=== PATIENT | male | born 1970 | race Caucasian/White ===

== ENCOUNTER 2022-10-05 09:19 | Outpatient (CLI) | payer OTHER, SELFPAY ==
[2022-10-05 15:32] LABS: Chloride* 101 mmol/L (96-114)
[2022-10-05 15:33] LABS: Potassium* 4.2 mmol/L (3.6-5.1); Sodium* 139 mmol/L (135-149)
[2022-10-05 15:36] LABS: Blood Urea Nitrogen* 19 mg/dL (5-24); Carbon Dioxide* 30 mmol/L (20-32); Cholesterol* 231 mg/dL (90-199); Creatinine* 1.1 mg/dL (0.5-1.5); Estimated Glomerular Filt Rate 82 ml/min
[2022-10-05 15:37] LABS: Calcium* 9.5 mg/dL (8.4-10.6); Glucose* 143 mg/dL (60-115); HDL Cholesterol* 48 mg/dL (>=40); LDL Cholesterol Calculated 107 mg/dL (<100); Triglycerides* 381 mg/dL (40-149)
[2022-10-05 15:39] LABS: C Reactive Protein* 1.1 mg/dL (0.5-1.0)
== END 2022-10-05 09:20 | disposition home or self-care (01) ==
LOC: FBOREF 09:21
PROVIDERS: PCP Family Medicine; Visit Provider Family Medicine
DX: E03.9 Hypothyroidism, unspecified (principal); E55.9 Vitamin D deficiency, unspecified; E78.5 Hyperlipidemia, unspecified; I10 Essential (primary) hypertension
CPT/HCPCS: 80048; 80061; 84443; 86140

== ENCOUNTER 2022-12-29 08:51 | Outpatient (CLI) | payer OTHER, SELFPAY | END 2022-12-29 08:52 | disposition home or self-care (01) | LOC: FBOREF 08:51 | PROVIDERS: PCP Family Medicine; Visit Provider Family Medicine | DX: E03.9 Hypothyroidism, unspecified (principal) | CPT/HCPCS: 84443 ==

== ENCOUNTER 2023-06-28 15:48 | Outpatient (CLI) | payer OTHER, SELFPAY | END 2023-06-28 15:49 | disposition home or self-care (01) | PROVIDERS: PCP Family Medicine; Visit Provider Family Medicine | DX: E03.9 Hypothyroidism, unspecified (principal); E55.9 Vitamin D deficiency, unspecified; E78.5 Hyperlipidemia, unspecified; I10 Essential (primary) hypertension | CPT/HCPCS: 80048; 80061; 84439; 84443; 84460 ==

== ENCOUNTER 2024-11-28 16:22 | Outpatient (CLI) | payer OTHER, SELFPAY | END 2024-11-28 16:23 | disposition home or self-care (01) | LOC: FBOREF 16:24 | PROVIDERS: PCP Family Medicine; Visit Provider Family Medicine | DX: E78.2 Mixed hyperlipidemia (principal); I10 Essential (primary) hypertension; E55.9 Vitamin D deficiency, unspecified; E10.9 Type 1 diabetes mellitus without complications; Z12.5 Encounter for screening for malignant neoplasm of prostate | CPT/HCPCS: 80048; 80061; 84439; 84443; 84460; G0103 ==

== ENCOUNTER 2025-07-31 14:41 | Outpatient (CLI) | payer OTHER, SELFPAY ==
[2025-07-31 15:45] VITALS: BP 120/68; PULSE 97; RESP 18
--- NOTE | 2025-07-31 15:50 | W.PM.STED ---
Stress Test Note Date Date Seen: 07/31/25 Date of test: 07/31/25 Providers Primary care provider: Roel Terry Stress test physician: Hayley Diane Stress Test Note Stress test ordered: Stress Echo Indication for test: Chest pain Stress test medicine: Definity Results discussion: Resting EKG: Sinus rhythm, 69 beats per minute. Resting blood pressure: 112/66 Stress test: Patient has consented on ordered stress test of exercise treadmill stress echo, he agrees to proceed. Standard Jarvis protocol was followed. Patient requested to stop and was only able to exercise to 4 minutes 32 seconds, equivocal it to 6.4 Mets. Definity was required. He had a maximum heart rate of 157 beats per minute which was 109% of a calculated target heart rate of 143. He was only able to get 1 blood pressure checked during the stress test, definity needed to be administered, this blood pressure was 126/72. His rate pressure product was 19,782. He had no arrhythmia, no diagnostic EKG changes of ischemia. He had symptoms of his legs burning, feeling short of breath and overall tired making him need to stop exercising. Echo images are pending to couple this for a full formal diagnostic. Impression: Subjectively positive with dyspnea and poor exercise tolerance, objectively negative EKG portion of this stress test. Follow up suggested: Patient is discharged home in stable condition. He will await contact from his ordering physician once the echo images have been read.
[2025-07-31] MEDS: PERFLUTREN LIPID MICROSPHERES 2 ML VIAL IVP (15:54)
== END 2025-07-31 15:55 | disposition home or self-care (01) ==
LOC: STRESS 14:42
PROVIDERS: PCP Family Medicine; Visit Provider Family Medicine
DX: R07.9 Chest pain, unspecified (principal); I34.0 Nonrheumatic mitral (valve) insufficiency
CPT/HCPCS: 93016; 93325; 93351; Q9957